=== PATIENT | female | born 1965 | race Caucasian/White ===

== ENCOUNTER → 2023-09-09 06:29 | Day surgery (SDC) | payer OTHER, SELFPAY | LOC: GI 06:29 | PROVIDERS: ATTENDING PHYSICIAN Internal Medicine Gastroenterology; FAMILY PHYSICIAN Student in an Organized Health Care Education/Training Program | DX: Z12.11 Encounter for screening for malignant neoplasm of colon (principal); R14.0 Abdominal distension (gaseous); K64.8 Other hemorrhoids; Q43.8 Other specified congenital malformations of intestine | CPT/HCPCS: 45380; 88305 ==

== ENCOUNTER → 2024-08-30 15:26 | Outpatient (REF) | payer BC, SELFPAY | LOC: RAD 15:26 | PROVIDERS: ATTENDING PHYSICIAN Student in an Organized Health Care Education/Training Program | DX: R05.3 Chronic cough (principal) | CPT/HCPCS: 71046 ==